=== PATIENT | female | born 1935 | race Caucasian/White ===

== ENCOUNTER → 2019-04-06 | Outpatient (CLI) | payer OTHER ==
[~2019-04-06] MED LIST: ACETAMINOPHEN325 M1 PO; ALLEGRA180 MG PO; AMLODIPINE-BEN1 EAC2 PO; CEPHALEXIN 500500 M1 PO; CIPROFLOXACIN500 M1 PO; CLONAZEPAM; CLONAZEPAM 0.50.5 M1 PO; DIPHENHYDRAMINE25 M3 PO; MOBIC7.5 M1 PO; MULTI VITAMIN1 EACH PO; WOMAN'S LAXATIVE5 M1 PO; ZPAK PO
== END ==
LOC: M.RAD 12:54
DX: I11.9 Hypertensive heart disease without heart failure (principal); J06.9 Acute upper respiratory infection, unspecified; I48.91 Unspecified atrial fibrillation; M41.85 Other forms of scoliosis, thoracolumbar region

== ENCOUNTER → 2020-03-02 | Outpatient (CLI) | payer OTHER ==
[2020-03-02 08:32] LABS: ABSOLUTE EOSINOPHILS 0.1 thou/uL (0.0-0.7); ABSOLUTE LYMPHOCYTES 1.5 thou/uL (0.8-5.3); ABSOLUTE MONOCYTES 0.6 thou/uL (0.0-1.2); ABSOLUTE NEUTROPHILS 2.9 thou/uL (1.6-8.1); BASOPHILS 0.2 %; EOSINOPHILS 1.4 %; HEMATOCRIT 40.1 % (37.0-47.0); HEMOGLOBIN 14.1 gm/dL (12.0-15.0); LYMPHOCYTES 29.8 %; MCH 33.1 pg (26.0-34.0); MCHC 35.1 g/dL (28.0-37.0); MCV 94.3 fL (80.0-100.0); MONOCYTES 11.6 %; MPV 7.6 fl. (7.2-11.1); NUCLEATED RBCS 0 /100WBC; PLATELET COUNT* 288 thou/uL (150-400); RBC 4.26 mil/uL (4.20-5.00); RDW-CV 13.8 % (10.5-14.5)
[2020-03-02 08:50] LABS: ALBUMIN 3.1 g/dL (3.4-5.0); CREATININE 0.6 mg/dL (0.6-1.3); POTASSIUM 3.7 mmol/L (3.5-5.1); TOTAL BILIRUBIN 0.4 mg/dL (<0.1-1.0); TOTAL PROTEIN 7.1 g/dL (6.4-8.2)
== END ==
LOC: M.CT 03-01 16:30
PROVIDERS: Internal Medicine
DX: K57.30 Diverticulosis of large intestine without perforation or abscess without bleeding (principal); I51.7 Cardiomegaly; I25.10 Atherosclerotic heart disease of native coronary artery without angina pectoris

== ENCOUNTER → 2021-07-11 | Outpatient (CLI) | payer OTHER | LOC: M.ULTRA 10:28 | PROVIDERS: ATTEND Internal Medicine | DX: R10.13 Epigastric pain (principal) ==